=== PATIENT | male | born 1990 | race Caucasian/White ===

== ENCOUNTER 2024-05-01 15:36 | Emergency (ER) | payer BC, MEDICAID ==
[~2024-05-01] VITALS: Ht 172.7 cm; Wt 94.4 kg
[2024-05-01 15:42] VITALS: BP 187/107; TEMP 97.9; O2SAT 100
[2024-05-01] MEDS: BOOSTRIX VACCINE (TETANUS/DIPHTH/ACEL. PERTUSSIS) 0.5ML SYR IM ONE (16:02)
[2024-05-01] MEDS: LIDOCAINE 2% MDV 20ML VIAL SC ONE (16:25)
[2024-05-01] MEDS: CEPHALEXIN 500 MG CAP PO ONE (17:21)
[2024-05-01] MEDS ORDERED: CEPH500C PO (17:25)
== END 2024-05-01 17:44 | disposition home or self-care (01) ==
LOC: M ED 15:36
DX: S68.622A Partial traumatic transphalangeal amputation of right middle finger, initial encounter (principal); Y92.019 Unspecified place in single-family (private) house as the place of occurrence of the external cause; Y93.9 Activity, unspecified; Y99.9 Unspecified external cause status; W23.0XXA Caught, crushed, jammed, or pinched between moving objects, initial encounter; Z23 Encounter for immunization; Z79.2 Long term (current) use of antibiotics